=== PATIENT | female | born 1955 | race Caucasian/White ===

== ENCOUNTER → 2017-02-17 | Outpatient (CLI) | payer OTHER, MEDICARE | LOC: KOH-I 10:26 | DX: M54.5 Low back pain (principal) | CPT/HCPCS: 72110 ==

== ENCOUNTER 2020-10-25 10:17 | Emergency (ER) | payer OTHER, MEDICARE ==
[~2020-10-25] VITALS: Ht 170.2 cm; Wt 74.8 kg
[~2020-10-25 10:17] MED LIST: TAMIFLU75 MG PO; ZOFRAN4 MG PO
== END 2020-10-25 14:42 | disposition home or self-care (01) ==
LOC: ER1 10:17
DX: U07.1 COVID-19 (principal); E11.9 Type 2 diabetes mellitus without complications
CPT/HCPCS: 99283; M0239

== ENCOUNTER → 2021-05-29 | Outpatient (CLI) | payer OTHER, MEDICARE ==
[~2021-05-29] MED LIST changes: +ASPIRIN81 MG PO; +BASAGLAR K100 UNIT/1 SC; +CLARITIN10 M1 PO; +CLOPIDOGREL75 MG PO; +HYDROCODON-ACE1 EAC4 PO; +METOPROLOL SUCC50 MG PO; +NEXIUM20 M1 PO; +NITROSTAT0.4 MG SL; +NOVOLOG100 UNIT/1 SC; +OZEMPIC1 MG/0.71 SQ; +ZOFRAN ODT 4 MG4 MG SL
== END ==
LOC: KOH-I 15:16
DX: R63.4 Abnormal weight loss (principal)
CPT/HCPCS: 71046

== ENCOUNTER 2021-06-14 12:39 | Emergency (ER) | payer OTHER, MEDICARE ==
[~2021-06-14 12:39] MED LIST changes: -ASPIRIN81 MG PO; -BASAGLAR K100 UNIT/1 SC; -CLARITIN10 M1 PO; -CLOPIDOGREL75 MG PO; -HYDROCODON-ACE1 EAC4 PO; -METOPROLOL SUCC50 MG PO; -NEXIUM20 M1 PO; -NITROSTAT0.4 MG SL; -NOVOLOG100 UNIT/1 SC; -OZEMPIC1 MG/0.71 SQ; -ZOFRAN ODT 4 MG4 MG SL
[2021-06-14] MEDS ORDERED: HYDROCODON-ACE1 EAC4 PO (17:11)
[2021-06-14] MEDS ORDERED: ZOFRAN ODT 4 MG4 MG SL (17:32)
[2021-06-19] MEDS ORDERED: CLOPIDOGREL75 MG PO (06:57)
[2021-06-19] MEDS ORDERED: NITROSTAT0.4 MG SL (06:58)
[2021-06-19] MEDS ORDERED: METOPROLOL SUCC50 MG PO (06:58)
[2021-06-19] MEDS ORDERED: NOVOLOG100 UNIT/1 SC (06:59)
[2021-06-19] MEDS ORDERED: OZEMPIC1 MG/0.71 SQ (06:59)
[2021-06-19] MEDS ORDERED: ASPIRIN81 MG PO (07:00)
[2021-06-19] MEDS ORDERED: CLARITIN10 M1 PO (07:00)
[2021-06-19] MEDS ORDERED: BASAGLAR K100 UNIT/1 SC (07:00)
[2021-06-19] MEDS ORDERED: NEXIUM20 M1 PO (07:01)
== END 2021-06-14 17:50 | disposition home or self-care (01) ==
LOC: ER1 12:39
DX: S42.352A Displaced comminuted fracture of shaft of humerus, left arm, initial encounter for closed fracture (principal); S01.81XA Laceration without foreign body of other part of head, initial encounter; E11.9 Type 2 diabetes mellitus without complications; Z79.82 Long term (current) use of aspirin; W01.0XXA Fall on same level from slipping, tripping and stumbling without subsequent striking against object, initial encounter
CPT/HCPCS: 70450; 70486; 72125; 73030; 73200; 81001; 93005; 96374; 96375; 96376; 99284; J2270; J2405

== ENCOUNTER → 2021-06-14 | Outpatient (CLI) | payer OTHER, MEDICARE | LOC: CT 10:08 | DX: R10.9 Unspecified abdominal pain (principal); R63.4 Abnormal weight loss; R09.89 Other specified symptoms and signs involving the circulatory and respiratory systems; M79.606 Pain in leg, unspecified | CPT/HCPCS: 93922; 93925; Q9965 ==

== ENCOUNTER → 2021-06-19 | Day surgery (SDC) | payer OTHER, MEDICARE ==
[~2021-06-19] VITALS: Ht 170.2 cm; Wt 75.7 kg
[~2021-06-19] MED LIST changes: +ASPIRIN81 MG PO; +BASAGLAR K100 UNIT/1 SC; +CLARITIN10 M1 PO; +CLOPIDOGREL75 MG PO; +HYDROCODON-ACE1 EAC4 PO; +METOPROLOL SUCC50 MG PO; +NEXIUM20 M1 PO; +NITROSTAT0.4 MG SL; +NOVOLOG100 UNIT/1 SC; +OZEMPIC1 MG/0.71 SQ; +ZOFRAN ODT 4 MG4 MG SL
[2021-06-19 06:54] LABS: HEMOGLOBIN 11.8 gm/dl (12.3-15.3); RED BLOOD COUNT 3.75 M/UL (4.00-5.10); WHITE BLOOD COUNT 7.2 K/UL (4.5-11.0)
[2021-06-19 07:11] LABS: BUN/CREATININE RATIO 18 (0-10)
[2021-06-19 11:46] LABS: HEMOGLOBIN 10.3 gm/dl (12.3-15.3)
[2021-06-19 12:05] LABS: RED BLOOD COUNT 3.25 M/UL (4.00-5.10); WHITE BLOOD COUNT 9.2 K/UL (4.5-11.0)
[2021-06-19 12:25] LABS: BUN/CREATININE RATIO 21 (0-10)
== END | disposition home or self-care (01) ==
LOC: OR 05:51
PROVIDERS: Orthopaedic Surgery
DX: S42.202A Unspecified fracture of upper end of left humerus, initial encounter for closed fracture (principal); I10 Essential (primary) hypertension; I25.10 Atherosclerotic heart disease of native coronary artery without angina pectoris; E11.40 Type 2 diabetes mellitus with diabetic neuropathy, unspecified; K21.9 Gastro-esophageal reflux disease without esophagitis; M79.7 Fibromyalgia; Z95.5 Presence of coronary angioplasty implant and graft; Z79.82 Long term (current) use of aspirin; Z79.02 Long term (current) use of antithrombotics/antiplatelets; Z79.891 Long term (current) use of opiate analgesic; Z79.4 Long term (current) use of insulin; Z79.899 Other long term (current) drug therapy; W01.0XXA Fall on same level from slipping, tripping and stumbling without subsequent striking against object, initial encounter
CPT/HCPCS: 36415; 71045; 73020; 80048; 82962; 85025; 85027; 86850; 86900; 86901; 93005; C1713; C1776; J0592; J0690; J1100; J2001; J2250; J2370; J2405; J2704; J2710; J2795; J3010; J3370; J7030; J7120

== ENCOUNTER → 2022-05-19 | Outpatient (CLI) | payer MEDICARE | LOC: CT 05-16 08:30 | DX: M79.606 Pain in leg, unspecified (principal); R09.89 Other specified symptoms and signs involving the circulatory and respiratory systems; I70.8 Atherosclerosis of other arteries; I70.202 Unspecified atherosclerosis of native arteries of extremities, left leg | CPT/HCPCS: 36415; 75635; 82565; 84520; Q9967 ==